=== PATIENT | male | born 1980 | race Caucasian/White ===

== ENCOUNTER 2016-10-08 19:14 | Emergency (ER) | payer BC ==
[~2016-10-08] VITALS: Ht 182.9 cm; Wt 95.3 kg
[2016-10-08] MEDS ORDERED: GLUCAGON,HUMAN RECOMBINANT 1 MG KIT. IV ONE (19:45)
[2016-10-08] MEDS ORDERED: LIDO:MAALOX 1:1 20 ML SINGLE DOSE PO ONE (19:45)
[2016-10-08] MEDS ORDERED: DIAZEPAM 10 MG/2 ML DISP.SYRIN. IV ONE (19:45)
--- NOTE | 2016-10-08 20:49 | PHYS DOC ---
General Chief Complaint: FOREIGN BODY Stated Complaint: FOREIGN OBJECT IN THROAT Time Seen by MD: 19:20 Source: patient Exam Limitations: no limitations Problems: History of Present Illness Initial Comments Pt is 36/M to ED c/o food stuck in throat. Tonight at dinner took one bite fried chicken and got stuck in pt throat. One prior occurrance last April. Pt denies any bone, able to swallow his secretions 97% RA. Timing/Duration: this evening Severity: severe Location: throat Prearrival Treatment: no prearrival treatment Modifying Factors: worse with activity Associated Symptoms: other Allergies: Coded Allergies: Sulfa (Sulfonamide Antibiotics) (Unverified Allergy, Unknown, 12/15/14) Past Medical History Medical History: no pertinent history Surgical History: tonsillectomy Social History Smoker: non-smoker Alcohol: occasionally Drugs: none Constitutional: denies chills, denies fever Nose: denies clots, denies congestion, denies epistaxis Mouth: denies clots, denies pain, denies swelling Throat: see HPI Respiratory: cough, denies shortness of breath, denies wheezing Cardiovascular: denies chest pain, denies palpitations, denies syncope Gastrointestinal: denies abdominal pain, denies nausea, denies vomiting Neurological: denies headache, denies numbness, denies paresthesia Physical Exam General Appearance: WD/WN, moderate distress Nose: normal inspection, active bleeding Mouth/Throat: normal mouth inspection, pharynx normal Neck: non-tender, supple Cardiovascular/Respiratory: normal peripheral pulses, normal breath sounds, no respiratory distress 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 After a time of observation pt coughed forcefully dislodging stuck food. Currently asymptomatic d/c home see departure instructions. Departure Time of Disposition: 20:46 Disposition: 01 HOME, SELF-CARE Diagnosis: esophageal obstruction, esophageal FB, h/o eosinop Condition: IMPROVED Patient Instructions: Esophageal Spasm, Esophagitis Additional Instructions: Rest, no strenuous activity. Cut up food very finely, take small bites when eating. Continue current meds. You need another EGD. Follow up with your doctor this week for recheck and GI referral. Return to ED with new or changing symptoms. WILLIAM FRANCO DO October 08, 2016 20:49
[2016-10-08 21:00] VITALS: BP 122/86
--- NOTE | 2016-10-09 08:17 | RAD ---
Chest, 2 views, 10/08/2016: History: Chest and neck pain, possible foreign body impaction The heart size and pulmonary vascularity are normal. The lungs are clear. There is no evidence of pleural fluid. IMPRESSION: No acute cardiopulmonary abnormality is detected.
--- NOTE | 2016-10-09 08:19 | RAD ---
Neck for soft tissues, 2 views, 10/08/2016: History: Neck pain, possible impacted foreign body There are cartilaginous calcifications in the laryngeal region. No prevertebral soft tissue swelling or radiopaque foreign body is evident. No significant airway narrowing is seen. IMPRESSION: No significant abnormality is detected.
== END 2016-10-08 21:00 | disposition home or self-care (01) ==
LOC: ER 19:17
DX: K22.2 Esophageal obstruction (principal); T18.128A Food in esophagus causing other injury, initial encounter; Z88.2 Allergy status to sulfonamides; X58.XXXA Exposure to other specified factors, initial encounter; Y93.89 Activity, other specified; Y92.89 Other specified places as the place of occurrence of the external cause; Y99.8 Other external cause status
CPT/HCPCS: 70360; 71020; 96374; 96375; 99284; J1610

== ENCOUNTER 2016-10-18 20:23 | Emergency (ER) | payer BC ==
[~2016-10-18] VITALS: Ht 182.9 cm; Wt 95.3 kg
[2016-10-18 20:32] VITALS: BP 121/83
--- NOTE | 2016-10-18 20:58 | PHYS DOC ---
Past History Past Medical History: Other Past Surgical History: Tonsillectomy, Other Alcohol Use: Occasionally Drug Use: None Adult General Chief Complaint Chief Complaint: FOREIGN BODY HPI HPI Patient is a 36-year-old gentleman who has a history significant for eosinophilic esophagitis who presents here today secondary to an esophageal foreign body obstruction secondary to a food bolus of steak that he ate today. Patient reports she's had this happen to him a couple times in the past. Back in July he had endoscopy done which revealed no stricture however he was told that he had some kind of allergic reaction and he had an eosinophilic esophagitis. Patient was instructed to use Flonase to assist him to prevent this from occurring further. Patient has any other symptoms at this time. Patient has any fevers shakes chills nausea vomiting diarrhea. Patient reports she is not able tolerate his saliva or any liquid. Patient has been trying to vomit for the last 1-2 hours without any success. Patient's physical exam the ER is unremarkable. He is alert awake and oriented 3. Airway intact. Lungs were clear. Heart was regular rate and rhythm. Abdomen was soft nontender no rebound or guarding. Patient has no crepitance around his neck. Patient's hospital course was significant for spontaneous resolution of the food bolus in esophagus. He was ordered however prior to obtaining it he reports resolution symptoms. Patient is able tolerate liquids now without any difficulty. Patient was able to drink a full cup of water without any difficulty. Patient did not regurgitated the water. Assessment and plan: Esophageal food obstruction. Patient had an impaction from steak. Patient presented to the ER and he will tolerate his own saliva however patient spontaneously resolved and is currently able to drink water without any difficulty. Patient be discharged home in stable condition. Patient is aware that he will need to follow up with GI for a follow-up endoscopy. He is being discharged in stable condition. Review of Systems Review of Systems Constitutional: Denies fever or chills [] Eyes: Denies change in visual acuity, redness, or eye pain [] HENT: Denies nasal congestion or sore throat [] All other review systems are negative except as documented in the history of present illness portion. Current Medications Current Medications Current Medications Medications (Trade) Dose Ordered Sig/Panfilo Start Time Stop Time Status Last Admin Dose Admin Glucagon (Glucagen Kit) 1 mg 1X ONCE 10/18/16 21:00 10/18/16 21:01 Potassium Bicarbonate (Klyte/Cl) 25 meq 1X ONCE 10/18/16 21:00 10/18/16 21:01 Allergies Allergies Allergies Coded Allergies Type Severity Reaction Last Updated Verified Sulfa (Sulfonamide Antibiotics) Allergy Unknown 12/15/14 No Physical Exam Physical Exam Constitutional: Well developed, well nourished, no acute distress, non-toxic appearance. [] HENT: Normocephalic, atraumatic, bilateral external ears normal, oropharynx moist, no oral exudates, nose normal. [] Eyes: PERRLA, EOMI, conjunctiva normal, no discharge. [] Neck: Normal range of motion, no tenderness, supple, no stridor. [] Cardiovascular:Heart rate regular rhythm, Lungs & Thorax: Bilateral breath sounds clear to auscultation [] Abdomen: soft, no tenderness, no masses, no pulsatile masses. [] Skin: Warm, dry, no erythema, no rash. [] Back: No tenderness, no CVA tenderness. [] Extremities: No tenderness, no cyanosis, no clubbing, ROM intact, no edema. [] Neurologic: Alert and oriented X 3, normal motor function, normal sensory function, no focal deficits noted. [] Psychologic: Affect normal, judgement normal, mood normal. [] Current Patient Data Vital Signs Current Medications Medications (Trade) Dose Ordered Sig/Panfilo Route PRN Reason Start Time Stop Time Status Last Admin Dose Admin Glucagon (Glucagen Kit) 1 mg 1X ONCE IM 10/18/16 21:00 10/18/16 21:01 Potassium Bicarbonate (Klyte/Cl) 25 meq 1X ONCE PO 10/18/16 21:00 10/18/16 21:01 Vital Signs Date Time Temp Pulse Resp B/P (MAP) Pulse Ox O2 Delivery O2 Flow Rate FiO2 10/18/16 20:32 97.7 77 16 98 Room Air EKG EKG [] Radiology/Procedures Radiology/Procedures [] Course & Med Decision Making Course & Med Decision Making Pertinent Labs and Imaging studies reviewed. (See chart for details) [] Dragon Disclaimer Dragon Disclaimer This chart was dictated in whole or in part using Voice Recognition software in a busy, high-work load, and often noisy Emergency Department environment. It may contain unintended and wholly unrecognized errors or omissions. Departure Departure: Impression: Primary Impression: Esophageal foreign body Additional Impression: Food impaction of esophagus Disposition: 01 HOME, SELF-CARE Condition: IMPROVED Referrals: ONIEL KIM MD (PCP) Patient Instructions: Esophagitis Additional Instructions: U had a food impaction in esophagus. Please make arrangements to follow-up with her primary care doctor or with your GI specialist for repeat endoscopy to reevaluate her condition. Patient drink lots of liquids over the next 24 hours. Avoid any hard chewy foods. Major eat small bites and chew them carefully. Problem Qualifiers Primary Impression: Esophageal foreign body Encounter type: initial encounter Qualified Codes: T18.108A - Unspecified foreign body in esophagus causing other injury, initial encounter Additional Impression: Food impaction of esophagus Encounter type: initial encounter Qualified Codes: T18.128A - Food in esophagus causing other injury, initial encounter ROB FRIAS MD October 18, 2016 20:58
[2016-10-18] MEDS ORDERED: GLUCAGON,HUMAN RECOMBINANT 1 MG KIT. IM ONE (21:00)
[2016-10-18] MEDS ORDERED: POTASSIUM BICARB 25 MEQ EFFERVESCENT TAB. PO ONE (21:00)
== END 2016-10-18 21:00 | disposition home or self-care (01) ==
LOC: ER 20:23
DX: T18.128A Food in esophagus causing other injury, initial encounter (principal); Z88.2 Allergy status to sulfonamides; X58.XXXA Exposure to other specified factors, initial encounter; Y93.89 Activity, other specified; Y99.8 Other external cause status; Y92.89 Other specified places as the place of occurrence of the external cause
CPT/HCPCS: 99281